=== PATIENT | female | born 1990 | race Caucasian/White ===

== ENCOUNTER 2018-08-01 21:51 | Emergency (ER) | payer BC, OTHER ==
[~2018-08-01] VITALS: Ht 160 cm; Wt 79.4 kg
[2018-08-01 22:03] LABS: URINE BILIRUBIN NEGATIVE (Negative); URINE BLOOD NEGATIVE (Negative); URINE CLARITY CLEAR; URINE COLOR YELLOW; URINE GLUCOSE-RANDOM* NEGATIVE (Negative); URINE KETONES NEGATIVE (Negative); URINE LEUKOCYTES-REFLEX NEGATIVE (Negative); URINE NITRITE-REFLEX NEGATIVE (Negative); URINE PROTEIN (DIPSTICK) NEGATIVE (Negative); URINE UROBILINOGEN 0.2 E.U./dl (0.2-1.0)
[2018-08-01] MEDS ORDERED: VITAFOL-OB+DHA1 EACH PO (22:24)
[2018-08-01] MEDS ORDERED: EFFEXOR 5050 MG/1 T1 PO (22:24)
[2018-08-01 23:52] LABS: ABSOLUTE NEUTROPHILS 7.4 thou/uL (1.4-8.2); BASOPHILS 0.4 % (0.0-2.0); HEMATOCRIT 36.1 % (37.0-47.0); HEMOGLOBIN 11.8 gm/dL (12.0-15.0); LYMPHOCYTES 6.4 % (24.0-44.0); MCH 26.1 pg (26.0-34.0); MCHC 32.8 g/dL (28.0-37.0); MCV 79.5 fL (80.0-100.0); MONOCYTES 5.6 % (1.0-8.0); PLATELET COUNT 203 thou/uL (150-400); POLYS 87.6 % (36.0-66.0); RBC 4.53 mil/uL (4.20-5.00); WBC 8.4 thou/uL (4.0-11.0)
[2018-08-01 23:55] LABS: POTASSIUM 3.5 mmol/L (3.5-5.1)
[2018-08-02] MEDS ORDERED: AUGMENTIN 875-1 EACH PO (02:50)
[2018-08-02 03:10] VITALS: BP 117/71
== END 2018-08-02 03:10 | disposition home or self-care (01) ==
LOC: ER 21:51
PROVIDERS: Emergency Medicine
DX: J36 Peritonsillar abscess (principal); Z88.8 Allergy status to other drugs, medicaments and biological substances